=== PATIENT | male | born 1935 | race African-American/Black ===

== ENCOUNTER 2016-10-14 16:03 | Inpatient (IN) | payer MEDICARE, OTHER ==
--- NOTE | ~2016-10-14 | CN ---
Consultation Report [place] [id number]. [address] NAME: NATHALY PEDROZA : 37 STATUS : ADM IN [facility]#: [id number] AGE: 81 ADM/REG DATE : 10/14/16 MR#: [id number] REPORT SERV DATE: 10/15/16 DICTATED BY: DEREK SOLIS DATE: 10/15/16 REPORT STATUS : Draft TRANSCRIBED BY: MODCourtney DATE: 10/15/16 DATE OF CONSULTATION: 10/15/2016 REASON FOR THE VISIT: Volume overload. HISTORY OF PRESENT ILLNESS: Mr. Pedroza is a 81-year-old man who recently underwent upgrade to biventricular pacemaker from pacemaker. He presented to our office yesterday for his one- week postoperative visit. He was swollen, short of breath, and felt terrible. He was sent to the emergency room for evaluation. He has subsequently been admitted with volume overload. He has a known mildly decreased ejection fraction. He has been given diuresis overnight and feels much better already. No other recent significant symptoms such as fevers or chills, new chest pain, palpitations, or syncope. PAST MEDICAL HISTORY: 1. Congestive heart failure. 2. Previously implanted pacemaker. 3. History of ventricular tachycardia. 4. Diabetes. 5. Hypertension. 6. Anxiety disorder. 7. COPD. SOCIAL HISTORY: He does not smoke. Family is in the room. He has good family support. FAMILY HISTORY: Noncontributory at this time. HOME MEDICATIONS: 1. Vitamin C. 2. Baclofen. 3. Carvedilol 3.125 mg b.i.d. 4. Ativan twice daily as needed. 5. Glucophage 500 mg b.i.d. 6. Multivitamin. 7. Lyrica 150 mg every night at bedtime. ALLERGIES: HE IS ALLERGIC TO PERCOCET. REVIEW OF SYSTEMS: A 10-system review is asked and is negative except for noted above in history of present illness. PHYSICAL EXAMINATION: VITAL SIGNS: Mr. Pedroza is afebrile, heart rate 70, systolic blood pressure 123. GENERAL: Mr. Pedroza is a well-developed man in no acute distress. He is alert and oriented to person and place. Consultation Report [facility] [address] [facility] [place] [address] NAME: NATHALY PEDROZA : 37 STATUS : ADM IN PAT#: [id number] AGE: 81 ADM/REG DATE : 10/14/16 MR#: [id number] REPORT SERV DATE: 10/15/16 DICTATED BY: DEREK SOLIS DATE: 10/15/16 REPORT STATUS : Draft TRANSCRIBED BY: GYPSY DATE: 10/15/16 HEENT: Negative. There is no obvious dehydration. NECK: No JVD is seen in his neck. RESPIRATORY: Lungs have decreased breath sounds at both bases. No crackles. No wheezing. CARDIOVASCULAR: Heart tones are regular. There is a murmur. His pacemaker site is well healed. ABDOMEN: Abdominal exam is negative. He has good bowel sounds. EXTREMITIES: Show pitting edema in both legs. NEUROLOGIC: He has normal speech and moves all four extremities equally. SKIN: Negative. LABORATORY DATA: White blood cell count 3, hematocrit 41, platelet count 138. Sodium 143, potassium 4.0, BUN 16, creatinine 1.15. Cardiac enzymes are at 0.08 maximum. IMAGING: Electrocardiogram: This demonstrates sinus rhythm with ventricular pacing with PVCs. IMPRESSION: Acute exacerbation of chronic systolic heart failure. PLAN: Overall, everything on Mr. Pedroza seems to be stable. Possibly, the recent surgery just exacerbated his heart failure. He has been given diuresis overnight and is doing well. He probably needs another day of diuresis here in the hospital and then can go home on some low-dose oral diuretic. Otherwise, I cannot think of any changes to make for him. I discussed this with him and his family and they agree with this plan. [facility]/GYPSY Derek Solis M.D. / [id number] CC: MD Calulm Vicente M.D. Robert McKoy, M.D.
--- NOTE | ~2016-10-14 | DS ---
Discharge Summary [facility] [address] [place]. [address] NAME: NATHALY PEDROZA : 37 STATUS : DIS IN PAT#: [id number] AGE: 81 ADM/REG DATE : 10/14/16 MR#: [id number] REPORT SERV DATE: 10/23/16 DICTATED BY: EDUARDO MOONEY DATE: 10/22/16 REPORT STATUS : Draft TRANSCRIBED BY: MODL DATE: 10/22/16 ADMISSION DATE: 10/14/2016 DISCHARGE DATE: 10/22/2016 DISPOSITION: Discharged to home. CONDITION ON DISCHARGE: Stable. ADDITIONAL INFORMATION ON DISCHARGE: The patient is being discharged home with Home Health Nursing. The patient already has a walker at home that he uses to get around at home, and he is stable for this. DIAGNOSES ON DISCHARGE: 1. Acute exacerbation of diastolic heart failure, but this has almost resolved. 2. Chronic systolic and diastolic heart failure. 3. Heart failure with reduced ejection fraction of only 20%. 4. Status post AICD/pacemaker placement. 5. Diabetes mellitus, which is fairly stable. 6. Depression for which he has been started on Zoloft. 7. History of third-degree AV block. 8. History of ventricular tachycardia. 9. Hypertension, which is stable; chronic obstructive pulmonary disease, which is followed by Dr. Joshua Christianson, which is also stable. 10.History of prostate cancer, which is stable and is being followed by Dr. Oleg Weiss. BRIEF HOSPITAL COURSE: Mr. Pedroza is a 81-year-old -Cypriot male patient who was admitted with signs and symptoms as outlined in history and physical exam. Essentially, he was admitted with exacerbation of diastolic and systolic heart failure with anasarca. The patient was started on diuresis and his guidance counselor, Dr. Solis, was consulted. The patient responded well to diuresis. Dr. Solis decided to redo his pacemaker and change it to the AICD/pacemaker one more time this time and the patient has been doing well since. The patient had an echocardiogram which does show an ejection fraction of only 20% now. The patient continues to have chronic elevation in his BNP, which is probably going to be his baseline and also chronic 1 to 2+ pedal edema in his extremities, which should slowly resolve with torsemide that Dr. Solis has recommended. He is being discharged home on the following medications. The patient will continue Coreg 3.125 mg p.o. b.i.d. We have added low-dose CATALINA inhibitor to his regimen. Ramipril 2.5 mg once a day. His diuretic will be torsemide 20 mg once a day per Dr. Solis. The patient will also be on Zoloft 50 mg once a day that has been started while he is in the hospital. He will continue his home medications that he takes for anxiety. Discharge Summary [address] [address] NAME: NATHALY PEDROZA : 37 STATUS : DIS IN PAT#: [id number] AGE: 81 ADM/REG DATE : 10/14/16 MR#: [id number] REPORT SERV DATE: 10/23/16 DICTATED BY: EDUARDO MOONEY DATE: 10/22/16 REPORT STATUS : Draft TRANSCRIBED BY: MODL DATE: 10/22/16 I do have the following labs on the patient upon discharge and his most recent CBC on 10/21/2016, shows a WBC count of 2.9, hemoglobin 12.3, hematocrit of 37.2, and platelet count of 105. INR is 1.3. His electrolytes are normal. BUN is normal. Creatinine is normal at 1.02. LFTs are normal. Chest x-ray on 10/21/2016, shows AICD in place. Cardiomegaly and pulmonary vascular congestion, which are probably going to be chronic for this patient. He is being discharged home in stable condition and with [facility] at this time for medication assistance and management for congestive heart failure. I have spent about 35 to 40 minute in coordinating discharge care of this patient including [id number] encounter, med reconciliation, and summarizing this discharge. RRA/GYPSY Eduardo Mooney M.D. / [id number] CC: Earle Solano M.D.
--- NOTE | ~2016-10-14 | HP ---
History And Physical [facility] [address] [facility] [place]. [address] NAME: NATHALY DOUGHERTY : 37 STATUS : ADM IN PAT#: [id number] AGE: 81 ADM/REG DATE : 10/14/16 MR#: [id number] REPORT SERV DATE: 10/14/16 DICTATED BY: DUSTY HENRY DATE: 10/14/16 REPORT STATUS : Draft TRANSCRIBED BY: MODL DATE: 10/14/16 DATE OF ADMISSION: 10/14/2016 CHIEF COMPLAINT: Shortness of breath. BRIEF HISTORY OF PRESENT ILLNESS: The patient is a 81-year-old male with multiple medical issues, presented today from Dr. Solis's office to [facility] Emergency Room with complaints of shortness of breath. He says this has been going on over the last six to seven days. Since he got his pacemaker, he has noticed that his lower extremities have significantly been swollen and more and more edema has collected. He has gained weight. He has become somewhat orthopneic, but he says that he has also been having some anxiety as he has been trying to wean off the lorazepam, then the reported that the lorazepam caused an idiosyncratic reaction, so he has not been taking it. He denied any nausea or vomiting. He has not had any chest pain. He denies any cough, fever, chills, or other constitutional symptoms. When in the emergency room, he was noted to have significant edema. He was also noted to have an elevated BNP despite his chest x-ray being read to be normal, so he has been referred to the Hospitalist Service for further treatment and evaluation. REVIEW OF SYSTEMS: A 12-point review of systems negative otherwise except for what is noted in the HPI. PAST MEDICAL HISTORY: Significant for congestive heart failure, last known ejection fraction about 40% to 45%. Recent pacemaker switched out to be a biventricular AICD. Third-degree AV block, ventricular tachycardia. He has type 2 diabetes mellitus. He has hypertension. He has anxiety disorder and he also noted to have COPD, followed by Dr. Joshua Christianson. He has prostate cancer, followed by Dr. Oleg Weiss, not on any therapy at this time. PAST SURGICAL HISTORY: Significant for spinal fusion and back surgery, left shoulder surgery, and pacemaker placement. ALLERGIES: TO PERCOCET. HOME MEDICATIONS: Include vitamin C, baclofen 10 mg three times as needed for muscle spasms, Coreg 3.125 mg twice daily, Ativan 0.5 mg half tablet daily p.r.n., metformin 500 mg twice daily, multivitamins, and Lyrica 150 mg once at bedtime. SOCIAL HISTORY: He denies active use of tobacco. He had been asthma a smoker in the distant past. He denies use of alcohol. No illicit substances. He is a retired police cadet. FAMILY HISTORY: Significant for prostate cancer in the brother. Father of heart disease. PHYSICAL EXAMINATION: GENERAL: male, lying on a gurney, appears to be in [id number] respiratory distress because he is not able to complete full sentences. However, he is not History And Physical [address] [place]. [address] NAME: NATHALY DOUGHERTY : 37 STATUS : ADM IN [facility]#: [id number] AGE: 81 ADM/REG DATE : 10/14/16 MR#: [id number] REPORT SERV DATE: 10/14/16 DICTATED BY: DUSTY HENRY. DATE: 10/14/16 REPORT STATUS : Draft TRANSCRIBED BY: GYPSY DATE: 10/14/16 hypoxic. VITAL SIGNS: Blood pressure upon arrival to the emergency room is 161/112; saturation of 98% on room air; pulse is 75, that is paced; and temperature is 98.0. HEENT: Head is normocephalic and atraumatic. Pupils are equal, round, and reactive to light. Extraocular muscles are intact. Sclerae are anicteric. Conjunctivae are normal. Oropharynx without lesion. Tongue protrusion midline. Uvula midline. NECK: Supple. No jugular venous distention. No carotid bruits or thyromegaly is appreciated. No lymphadenopathy in the neck is palpable. HEART: Regular rate rhythm. No murmurs, rubs, or gallops are heard. Pacemaker in the left upper chest. Surgical scar well healed. LUNGS: Diffuse bilateral crackles, worse in both lower lung bases. No rales, rhonchi, wheezing, or consolidation is noted. ABDOMEN: Slightly obese, soft, and nontender. Good bowel sounds. No rebound or guarding. No organomegaly. EXTREMITIES: Without cyanosis or clubbing. There is 4+ pitting edema in both lower extremities. NEUROLOGICAL: Seems to be grossly intact. LABORATORY DATA: Sodium 140, potassium 4.5, chloride 106, bicarb 29, BUN 17, creatinine 1.23, and glucose of 97. Troponin is 0.08. Calcium 9.2 and magnesium 2.4. BNP is 2926. White count is 4.0, hemoglobin of 14.8, hematocrit of 44, and platelet count is 162,000. No left shift. PT/INR and PTT are normal. Chest x-ray: Cardiomegaly and pacing device in place. EKG: Paced rhythm, rate 70, no acute ST-T wave changes. IMPRESSION: 1. Acute on chronic systolic and diastolic congestive heart failure. 2. Ventricular tachycardia, status post pacemaker. 3. Hypertension. 4. Type 2 diabetes mellitus. 5. Probability of sleep apnea. 6. Anxiety disorder. PLAN: The patient will be admitted. IV Bumex will be started. I will give four doses of IV albumin. We will place him on nitroglycerin paste and aspirin. We will have Dr. Yuri Solis see him in followup. I will address home medications. He has been discontinued from his Bystolic and his diltiazem today, and he was placed on Coreg. We will hold metformin for now. The patient remains a full code. СЕРГЕЙ/GYPSY Dusty Henry M.D. / [id number] CC: History And Physical [address] [address] NAME: NATHALY DOUGHERTY : 39 STATUS : ADM IN [facility]#: [id number] AGE: 81 ADM/REG DATE : 10/14/16 MR#: [id number] REPORT SERV DATE: 10/14/16 DICTATED BY: DUSTY HENRY DATE: 10/14/16 REPORT STATUS : Draft TRANSCRIBED BY: MODL DATE: 10/14/16 MD Callum Vicente M.D. Michael C Allan, M.D.
--- NOTE | ~2016-10-14 | IDS ---
Interim Discharge Summary [facility] [address] [place]. [address] NAME: NATHALY DOUGHERTY : 39 STATUS : DIS IN PAT#: [id number] AGE: 81 ADM/REG DATE : 10/14/16 MR#: [id number] REPORT SERV DATE: 10/22/16 DICTATED BY: NATTY DURAN DATE: 10/21/16 REPORT STATUS : Draft TRANSCRIBED BY: GYPSY DATE: 10/21/16 ADMISSION DATE: 10/14/2016 DISCHARGE DATE: DATE OF DISCHARGE: Pending. CONSULTATION: Cardiology, Dr. Derek Solis. INVASIVE PROCEDURE: Automatic implantable cardioverter-defibrillator placement on 10/21/2016. Procedure performed by Dr. Derek Solis. ADMISSION DIAGNOSES: 1. Acute decompensated heart failure with reduced ejection fraction 15% to 20%. 2. Ischemic cardiomyopathy, status post automatic implantable cardioverter-defibrillator placement. 3. Diabetes mellitus type 2. 4. Anxiety disorder. 5. Major depression. 6. History of supraventricular tachycardia. CURRENT CONDITION: Stable. HISTORY OF PRESENT ILLNESS: This is a 81-year-old male with medical history of systolic heart failure, hypertension, depression, anxiety disorder, who presented to the hospital with complaints of worsening shortness of breath and bilateral lower extremity swelling. On presentation, vital signs, blood pressure was 161/110, saturation of 98% on room air, pulse was 75 beats per minute, temperature was 98. Physical exam was significant for diffuse bilateral crackles in both lower lung bases, also for pitting pedal edema in both lower extremities. LABORATORY DATA: BNP was 2926. Creatinine was 1.23. An assessment of acute on chronic systolic heart failure with reduced EF was made in the ER and the patient was admitted to the Hospitalist Service for further management. HOSPITAL COURSE: 1. Acute decompensated heart failure with reduced EF. The patient's last known EF prior to this admission was 40%. During the course of this admission, echocardiogram was repeated. Repeat echocardiogram shows EF of 15%. Cardiology was consulted. Cardiology recommended the patient to be started on IV diuretics with Bumex. The patient continued to receive Bumex during the course of this admission with good urine output. The patient's generalized body swelling and shortness of breath has continued to improve. The patient's swelling still persists, but significantly improved compared to that of admission. Also, Cardiology recommended the patient's biventricular pacer to be upgraded to an AICD. The patient underwent AICD placement today without any complication. The patient will be transitioned from IV diuretics to p.o. diuretics in Interim Discharge Summary [place] [id number] [place]. [address] NAME: NATHALY DOUGHERTY : 39 STATUS : DIS IN PAT#: [id number] AGE: 81 ADM/REG DATE : 10/14/16 MR#: [id number] REPORT SERV DATE: 10/22/16 DICTATED BY: NATTY DURAN DATE: 10/21/16 REPORT STATUS : Draft TRANSCRIBED BY: GYPSY DATE: 10/21/16 the morning. The patient will likely go home if okay with Cardiology in the morning. 2. Major depression/anxiety disorder. The patient was noted to have significant anxiety disorder, was started on Zoloft during the course of this admission. The patient anxiousness and major depression have significantly improved. The patient continues to have no further symptoms of anxiety and wants to continue Zoloft, and follow up with primary care physician as an outpatient. 3. History of SVT. The patient has history of SVT in the past, was initially on a biventricular pacer. During the course of this admission, per Cardiology recommendation, AICD has been placed. The patient had no further significant arrhythmias during the course of this admission. 4. Current condition, stable for discharge possibly in the a.m. ALIEO/LYNDAL Natty Duran MD / [id number] CC: MD Callum Vicente M.D.
[2016-10-14 13:41] LABS: BASOPHILS 0.2 %; BASOPHILS ABSOLUTE 0.01 10/3/uL (0.0-0.16); EOSINOPHILS 0.5 %; EOSINOPHILS ABSOLUTE 0.02 10/3/uL (0.0-0.53); HEMATOCRIT 44.2 % (40.0-51.0); HEMOGLOBIN 14.8 g/dL (13.6-17.8); IMMATURE GRANULOCYTES 0.2 %; IMMATURE GRANULOCYTES ABSOLUTE 0.01 10/3/uL (0.0-0.11); LYMPHOCYTES 17.9 %; LYMPHOCYTES ABSOLUTE 0.77 10/3/uL (0.67-4.30); MANUAL DIFF NO %; MEAN CORPUS HGB CONC 33.5 g/dL (32.0-36.0); MEAN CORPUSCULAR HEMOGLOB 29.7 pg (26.0-34.0); MEAN CORPUSCULAR VOLUME 88.8 fL (80-100); MEAN PLATELET VOLUME 12.1 fL (9.2-13.0); MONOCYTES 16.5 %; MONOCYTES ABSOLUTE 0.71 10/3/uL (0.21-1.20); NEUTROPHILS 64.7 %; NEUTROPHILS ABSOLUTE 2.79 10/3/uL (2.02-8.40); PLATELET COUNT 162 10/3/uL (150-400); RBC DISTRIBUTION WIDTH 15.1 % (12.0-16.0); RED CELL COUNT 4.98 10/6/uL (4.7-6.1); WHITE BLOOD CELLS 4.3 10/3/uL (4.5-10.5)
[2016-10-14 13:47] LABS: INTERNATIONAL NORMAL RATI 1.3 UNITS (-); PARTIAL THROMBO TIME 28.4 SEC (22.5-37.2); PROTIME (NOT ORD) 16.4 SEC (12.0-14.5)
[2016-10-14 13:56] LABS: CALCIUM, SERUM 9.2 MG/DL (8.5-10.4); CHLORIDE, SERUM 106 MMOL/L (96-112); CREATININE 1.23 MG/DL (0.70-1.30); GFR AFRICAN AMERICAN 64 ML/MIN (>=60); GFR NON AFRICAN AMERICAN 55 ML/MIN (>=60); GLUCOSE, SERUM 97 MG/DL (60-99); POTASSIUM, SERUM 4.5 MMOL/L (3.5-5.3); SODIUM, SERUM 140 MMOL/L (135-148)
[2016-10-14 13:57] LABS: BUN (BLOOD UREA NITROGEN) 17 MG/DL (6-23); CHEST PAIN PROFILE TAT 0 Hrs 22 Mins; CO2 (CARBON DIOXIDE) 29 MMOL/L (24-34); TROPONIN I 0.07 NG/ML (<0.05)
[~2016-10-14 16:03] MED LIST: ATV1 PO; BENICAR HCT1 TAB PO; BENICAR5 PO; BREO ELLIPTA INH; BYSTOLIC5 MG PO; CARDCD180 PO; CAT1 PO; CATAPRES3 TOP; COREG3 PO; COZAAR100 MG PO; GLUCOV2.5 PO; GLUCPH PO; LIOR10 PO; LYRICA150 MG PO; MULTIPLE VIT PO; NORV5 PO; T PO; TRIBENZOR 40-11 EACH PO; ULTRAM50 PO
[2016-10-14] MEDS ORDERED: VITC500 PO (17:40)
[2016-10-14] MEDS ORDERED: MULTIVITAMI1 PO (17:40)
[2016-10-14] MEDS ORDERED: GLUCPH PO (17:41)
[2016-10-14] MEDS ORDERED: LYRICA150 MG PO (17:41)
[2016-10-14] MEDS ORDERED: ATV.5 PO (17:41)
[2016-10-14] MEDS ORDERED: LIOR10 PO (17:41)
[2016-10-14] MEDS ORDERED: COREG3 PO (17:42)
[2016-10-15 04:29] LABS: BASOPHILS 0.3 %; BASOPHILS ABSOLUTE 0.01 10/3/uL (0.0-0.16); EOSINOPHILS 1.5 %; EOSINOPHILS ABSOLUTE 0.05 10/3/uL (0.0-0.53); HEMATOCRIT 41.5 % (40.0-51.0); HEMOGLOBIN 13.8 g/dL (13.6-17.8); IMMATURE GRANULOCYTES 0.3 %; IMMATURE GRANULOCYTES ABSOLUTE 0.01 10/3/uL (0.0-0.11); LYMPHOCYTES ABSOLUTE 0.82 10/3/uL (0.67-4.30); MEAN CORPUS HGB CONC 33.3 g/dL (32.0-36.0); MEAN CORPUSCULAR HEMOGLOB 29.8 pg (26.0-34.0); MEAN CORPUSCULAR VOLUME 89.6 fL (80-100); MEAN PLATELET VOLUME 11.7 fL (9.2-13.0); MONOCYTES 15.5 %; MONOCYTES ABSOLUTE 0.51 10/3/uL (0.21-1.20); NEUTROPHILS 57.4 %; NEUTROPHILS ABSOLUTE 1.88 10/3/uL (2.02-8.40); PLATELET COUNT 138 10/3/uL (150-400); RBC DISTRIBUTION WIDTH 15.3 % (12.0-16.0); RED CELL COUNT 4.63 10/6/uL (4.7-6.1); WHITE BLOOD CELLS 3.3 10/3/uL (4.5-10.5)
[2016-10-15 04:30] LABS: MANUAL DIFF NO %
[2016-10-15 04:42] LABS: ALBUMIN 3.4 G/DL (3.5-5.0); BUN (BLOOD UREA NITROGEN) 16 MG/DL (6-23); CALCIUM, SERUM 9.1 MG/DL (8.5-10.4); CHLORIDE, SERUM 106 MMOL/L (96-112); CO2 (CARBON DIOXIDE) 31 MMOL/L (24-34); CREATININE 1.15 MG/DL (0.70-1.30); GFR AFRICAN AMERICAN 70 ML/MIN (>=60); GFR NON AFRICAN AMERICAN 60 ML/MIN (>=60); GLUCOSE, SERUM 89 MG/DL (60-99); PHOSPHORUS, SERUM 3.3 MG/DL (2.5-4.5); SODIUM, SERUM 143 MMOL/L (135-148)
[2016-10-16 05:53] LABS: BASOPHILS 0.3 %; BASOPHILS ABSOLUTE 0.01 10/3/uL (0.0-0.16); EOSINOPHILS 1.9 %; EOSINOPHILS ABSOLUTE 0.06 10/3/uL (0.0-0.53); HEMATOCRIT 39.4 % (40.0-51.0); HEMOGLOBIN 13.1 g/dL (13.6-17.8); LYMPHOCYTES 23.1 %; LYMPHOCYTES ABSOLUTE 0.74 10/3/uL (0.67-4.30); MEAN CORPUS HGB CONC 33.2 g/dL (32.0-36.0); MEAN CORPUSCULAR VOLUME 90.2 fL (80-100); MEAN PLATELET VOLUME 12.1 fL (9.2-13.0); MONOCYTES 15.3 %; MONOCYTES ABSOLUTE 0.49 10/3/uL (0.21-1.20); NEUTROPHILS 59.4 %; NEUTROPHILS ABSOLUTE 1.91 10/3/uL (2.02-8.40); PLATELET COUNT 122 10/3/uL (150-400); RED CELL COUNT 4.37 10/6/uL (4.7-6.1); WHITE BLOOD CELLS 3.2 10/3/uL (4.5-10.5)
[2016-10-16 05:56] LABS: MANUAL DIFF NO %
[2016-10-16 06:04] LABS: BUN (BLOOD UREA NITROGEN) 15 MG/DL (6-23); CALCIUM, SERUM 9.2 MG/DL (8.5-10.4); CHLORIDE, SERUM 105 MMOL/L (96-112); CO2 (CARBON DIOXIDE) 32 MMOL/L (24-34); CREATININE 1.19 MG/DL (0.70-1.30); GFR AFRICAN AMERICAN 67 ML/MIN (>=60); GFR NON AFRICAN AMERICAN 58 ML/MIN (>=60); GLUCOSE, SERUM 104 MG/DL (60-99); POTASSIUM, SERUM 4.1 MMOL/L (3.5-5.3); SODIUM, SERUM 144 MMOL/L (135-148)
[2016-10-17 05:12] LABS: BASOPHILS 0.3 %; BASOPHILS ABSOLUTE 0.01 10/3/uL (0.0-0.16); EOSINOPHILS 1.1 %; EOSINOPHILS ABSOLUTE 0.04 10/3/uL (0.0-0.53); HEMATOCRIT 39.2 % (40.0-51.0); HEMOGLOBIN 12.8 g/dL (13.6-17.8); IMMATURE GRANULOCYTES 0.3 %; IMMATURE GRANULOCYTES ABSOLUTE 0.01 10/3/uL (0.0-0.11); LYMPHOCYTES 17.9 %; LYMPHOCYTES ABSOLUTE 0.66 10/3/uL (0.67-4.30); MANUAL DIFF NO %; MEAN CORPUS HGB CONC 32.7 g/dL (32.0-36.0); MEAN CORPUSCULAR VOLUME 88.7 fL (80-100); MEAN PLATELET VOLUME 11.7 fL (9.2-13.0); MONOCYTES ABSOLUTE 0.48 10/3/uL (0.21-1.20); NEUTROPHILS 67.4 %; NEUTROPHILS ABSOLUTE 2.48 10/3/uL (2.02-8.40); PLATELET COUNT 124 10/3/uL (150-400); RBC DISTRIBUTION WIDTH 15.1 % (12.0-16.0); RED CELL COUNT 4.42 10/6/uL (4.7-6.1); WHITE BLOOD CELLS 3.7 10/3/uL (4.5-10.5)
[2016-10-17 05:25] LABS: ALBUMIN 3.5 G/DL (3.5-5.0); BUN (BLOOD UREA NITROGEN) 15 MG/DL (6-23); CALCIUM, SERUM 8.9 MG/DL (8.5-10.4); CHLORIDE, SERUM 105 MMOL/L (96-112); CO2 (CARBON DIOXIDE) 30 MMOL/L (24-34); CREATININE 1.07 MG/DL (0.70-1.30); GFR AFRICAN AMERICAN 76 ML/MIN (>=60); GFR NON AFRICAN AMERICAN 66 ML/MIN (>=60); GLUCOSE, SERUM 115 MG/DL (60-99); PHOSPHORUS, SERUM 2.6 MG/DL (2.5-4.5); POTASSIUM, SERUM 3.7 MMOL/L (3.5-5.3); SODIUM, SERUM 144 MMOL/L (135-148)
[2016-10-18 06:30] LABS: BUN (BLOOD UREA NITROGEN) 16 MG/DL (6-23); CALCIUM, SERUM 8.6 MG/DL (8.5-10.4); CHLORIDE, SERUM 105 MMOL/L (96-112); CO2 (CARBON DIOXIDE) 30 MMOL/L (24-34); CREATININE 1.07 MG/DL (0.70-1.30); GFR AFRICAN AMERICAN 76 ML/MIN (>=60); GFR NON AFRICAN AMERICAN 66 ML/MIN (>=60); GLUCOSE, SERUM 98 MG/DL (60-99); POTASSIUM, SERUM 3.5 MMOL/L (3.5-5.3); SODIUM, SERUM 143 MMOL/L (135-148)
[2016-10-19 06:01] LABS: BUN (BLOOD UREA NITROGEN) 17 MG/DL (6-23); CALCIUM, SERUM 8.7 MG/DL (8.5-10.4); CHLORIDE, SERUM 104 MMOL/L (96-112); CO2 (CARBON DIOXIDE) 32 MMOL/L (24-34); CREATININE 1.05 MG/DL (0.70-1.30); GFR AFRICAN AMERICAN 78 ML/MIN (>=60); GFR NON AFRICAN AMERICAN 67 ML/MIN (>=60); GLUCOSE, SERUM 100 MG/DL (60-99); POTASSIUM, SERUM 3.5 MMOL/L (3.5-5.3); SODIUM, SERUM 143 MMOL/L (135-148)
[2016-10-20 06:09] LABS: BASOPHILS 0.3 %; BASOPHILS ABSOLUTE 0.01 10/3/uL (0.0-0.16); EOSINOPHILS 1.3 %; EOSINOPHILS ABSOLUTE 0.04 10/3/uL (0.0-0.53); HEMOGLOBIN 13.2 g/dL (13.6-17.8); LYMPHOCYTES 19.7 %; LYMPHOCYTES ABSOLUTE 0.63 10/3/uL (0.67-4.30); MANUAL DIFF NO %; MEAN CORPUSCULAR HEMOGLOB 29.3 pg (26.0-34.0); MEAN CORPUSCULAR VOLUME 88.9 fL (80-100); MEAN PLATELET VOLUME 12.6 fL (9.2-13.0); MONOCYTES 15.9 %; MONOCYTES ABSOLUTE 0.51 10/3/uL (0.21-1.20); NEUTROPHILS 62.8 %; NEUTROPHILS ABSOLUTE 2.01 10/3/uL (2.02-8.40); PLATELET COUNT 116 10/3/uL (150-400); WHITE BLOOD CELLS 3.2 10/3/uL (4.5-10.5)
[2016-10-20 06:18] LABS: BUN (BLOOD UREA NITROGEN) 18 MG/DL (6-23); CALCIUM, SERUM 8.7 MG/DL (8.5-10.4); CHLORIDE, SERUM 104 MMOL/L (96-112); CO2 (CARBON DIOXIDE) 34 MMOL/L (24-34); CREATININE 1.15 MG/DL (0.70-1.30); GFR AFRICAN AMERICAN 70 ML/MIN (>=60); GFR NON AFRICAN AMERICAN 60 ML/MIN (>=60); GLUCOSE, SERUM 101 MG/DL (60-99); POTASSIUM, SERUM 3.7 MMOL/L (3.5-5.3); SODIUM, SERUM 142 MMOL/L (135-148)
[2016-10-21 04:47] LABS: BASOPHILS 0.3 %; BASOPHILS ABSOLUTE 0.01 10/3/uL (0.0-0.16); EOSINOPHILS 2.1 %; EOSINOPHILS ABSOLUTE 0.06 10/3/uL (0.0-0.53); HEMATOCRIT 37.2 % (40.0-51.0); HEMOGLOBIN 12.3 g/dL (13.6-17.8); LYMPHOCYTES 24.4 %; LYMPHOCYTES ABSOLUTE 0.71 10/3/uL (0.67-4.30); MEAN CORPUS HGB CONC 33.1 g/dL (32.0-36.0); MEAN CORPUSCULAR HEMOGLOB 29.6 pg (26.0-34.0); MEAN CORPUSCULAR VOLUME 89.4 fL (80-100); MEAN PLATELET VOLUME 12.4 fL (9.2-13.0); MONOCYTES 15.5 %; MONOCYTES ABSOLUTE 0.45 10/3/uL (0.21-1.20); NEUTROPHILS 57.7 %; NEUTROPHILS ABSOLUTE 1.68 10/3/uL (2.02-8.40); PLATELET COUNT 105 10/3/uL (150-400); RBC DISTRIBUTION WIDTH 14.9 % (12.0-16.0); RED CELL COUNT 4.16 10/6/uL (4.7-6.1); WHITE BLOOD CELLS 2.9 10/3/uL (4.5-10.5)
[2016-10-21 04:50] LABS: MANUAL DIFF NO %
[2016-10-21 04:59] LABS: INTERNATIONAL NORMAL RATI 1.3 UNITS (-); PROTIME (NOT ORD) 16.1 SEC (12.0-14.5)
[2016-10-21 05:03] LABS: ALBUMIN 3.1 G/DL (3.5-5.0); ALKALINE PHOSPHATASE 54 U/L (45-117); BUN (BLOOD UREA NITROGEN) 17 MG/DL (6-23); CALCIUM, SERUM 8.7 MG/DL (8.5-10.4); CHLORIDE, SERUM 105 MMOL/L (96-112); CO2 (CARBON DIOXIDE) 33 MMOL/L (24-34); CREATININE 1.02 MG/DL (0.70-1.30); DIRECT BILIRUBIN 0.2 MG/DL (0.0-0.4); GFR AFRICAN AMERICAN 81 ML/MIN (>=60); GFR NON AFRICAN AMERICAN 70 ML/MIN (>=60); GLUCOSE, SERUM 92 MG/DL (60-99); INDIRECT BILIRUBIN(NOT ORDER) 0.4 MG/DL (0.1-0.9); PHOSPHORUS, SERUM 2.8 MG/DL (2.5-4.5); POTASSIUM, SERUM 3.6 MMOL/L (3.5-5.3); SGOT(AST) 20 U/L (5-40); SGPT(ALT) 35 U/L (5-65); SODIUM, SERUM 143 MMOL/L (135-148); TOTAL BILIRUBIN 0.6 MG/DL (0-1.2); TOTAL PROTEIN 5.6 G/DL (6.0-8.5)
[2016-10-22] MEDS ORDERED: DSS PO (10:18)
[2016-10-22] MEDS ORDERED: ZOL50 PO (10:18)
[2016-10-22] MEDS ORDERED: PCET PO (10:20)
[2016-10-22] MEDS ORDERED: ALTA2.5 PO (10:20)
[2016-10-22] MEDS ORDERED: K500 PO (10:21)
[2016-10-22] MEDS ORDERED: DEMA20 PO (10:22)
== END 2016-10-22 11:24 | disposition home health service (06) | DRG 245 ==
LOC: ER 16:03 → 6NO 18:10
PROVIDERS: Hospitalist; Internal Medicine; Internal Medicine Cardiovascular Disease
PROC: 02HK3JZ Insertion of Pacemaker Lead into Right Ventricle, Percutaneous Approach (ICD-10-PCS; principal; 2016-10-21)
PROC: 0JH609Z Insertion of Cardiac Resynchronization Defibrillator Pulse Generator into Chest Subcutaneous Tissue and Fascia, Open Approach (ICD-10-PCS; 2016-10-21)
PROC: 0JPT0PZ Removal of Cardiac Rhythm Related Device from Trunk Subcutaneous Tissue and Fascia, Open Approach (ICD-10-PCS; 2016-10-21)
PROC: 3E0102A Introduction of Anti-Infective Envelope into Subcutaneous Tissue, Open Approach (ICD-10-PCS; 2016-10-21)
DX: I11.0 Hypertensive heart disease with heart failure (principal); I47.2 Ventricular tachycardia; I42.8 Other cardiomyopathies; E11.9 Type 2 diabetes mellitus without complications; I25.5 Ischemic cardiomyopathy; I47.1 Supraventricular tachycardia; I50.43 Acute on chronic combined systolic (congestive) and diastolic (congestive) heart failure; F41.9 Anxiety disorder, unspecified; F32.9 Major depressive disorder, single episode, unspecified; Z85.46 Personal history of malignant neoplasm of prostate; Z98.1 Arthrodesis status; Z87.891 Personal history of nicotine dependence; Z79.84 Long term (current) use of oral hypoglycemic drugs
CPT/HCPCS: 33233; 33249; 71010; 71020; 80048; 80069; 80076; 82962; 83735; 83880; 84100; 84484; 85025; 85610; 85730; 93005; 93306; 99285; A9270-GY; C1769; C1882; C1892; C1895; J0690; P9047

== ENCOUNTER 2016-11-15 18:31 | Emergency (ER) | payer MEDICARE, OTHER ==
[2016-11-15 15:22] LABS: BASOPHILS 0.2 %; BASOPHILS ABSOLUTE 0.01 10/3/uL (0.0-0.16); EOSINOPHILS 0.9 %; EOSINOPHILS ABSOLUTE 0.04 10/3/uL (0.0-0.53); HEMOGLOBIN 13.6 g/dL (13.6-17.8); LYMPHOCYTES 14.1 %; LYMPHOCYTES ABSOLUTE 0.64 10/3/uL (0.67-4.30); MEAN CORPUS HGB CONC 32.5 g/dL (32.0-36.0); MEAN CORPUSCULAR HEMOGLOB 29.1 pg (26.0-34.0); MEAN CORPUSCULAR VOLUME 89.3 fL (80-100); MEAN PLATELET VOLUME 12.5 fL (9.2-13.0); MONOCYTES 13.2 %; NEUTROPHILS 71.6 %; NEUTROPHILS ABSOLUTE 3.24 10/3/uL (2.02-8.40); RBC DISTRIBUTION WIDTH 15.1 % (12.0-16.0); RED CELL COUNT 4.68 10/6/uL (4.7-6.1)
[2016-11-15 15:23] LABS: ER CBC TAT 0 Hrs 13 Mins; HEMATOCRIT 41.8 % (40.0-51.0); PLATELET COUNT 158 10/3/uL (150-400); WHITE BLOOD CELLS 4.5 10/3/uL (4.5-10.5)
[2016-11-15 15:24] LABS: MANUAL DIFF NO %
[2016-11-15 15:39] LABS: ALBUMIN 3.3 G/DL (3.5-5.0); CHLORIDE, SERUM 106 MMOL/L (96-112); CREATININE 1.31 MG/DL (0.70-1.30); GFR AFRICAN AMERICAN 60 ML/MIN (>=60); GFR NON AFRICAN AMERICAN 51 ML/MIN (>=60); GLOBULIN 3.2 G/DL (2.5-4.1); POTASSIUM, SERUM 3.7 MMOL/L (3.5-5.3); SGOT(AST) 39 U/L (5-40); SGPT(ALT) 49 U/L (5-65); SODIUM, SERUM 141 MMOL/L (135-148); TOTAL BILIRUBIN 0.6 MG/DL (0-1.2); TOTAL PROTEIN 6.5 G/DL (6.0-8.5)
[2016-11-15 15:40] LABS: ALKALINE PHOSPHATASE 86 U/L (45-117); BUN (BLOOD UREA NITROGEN) 23 MG/DL (6-23); CO2 (CARBON DIOXIDE) 28 MMOL/L (24-34); GLUCOSE, SERUM 148 MG/DL (60-99)
[~2016-11-15 18:31] MED LIST changes: +ALTA2.5 PO; +ATV.5 PO; +DEMA20 PO; +DSS PO; +K500 PO; +MULTIVITAMI1 PO; +PCET PO; +VITC500 PO; +ZOL50 PO
== END 2016-11-15 19:21 | disposition home or self-care (01) ==
LOC: ER 18:31
PROVIDERS: Emergency Medicine
DX: I11.0 Hypertensive heart disease with heart failure (principal); I50.9 Heart failure, unspecified; N28.9 Disorder of kidney and ureter, unspecified; J44.9 Chronic obstructive pulmonary disease, unspecified; E11.9 Type 2 diabetes mellitus without complications; Z85.46 Personal history of malignant neoplasm of prostate; Z95.0 Presence of cardiac pacemaker; Z88.5 Allergy status to narcotic agent; Z79.899 Other long term (current) drug therapy; Z79.84 Long term (current) use of oral hypoglycemic drugs
CPT/HCPCS: 71020; 80053; 83880; 85025; 87040; 93005; 94640; 96374; 99285; J1940